=== PATIENT | female | born 1990 | race Caucasian/White ===

== ENCOUNTER 2023-07-05 02:30 | Outpatient (CLI) | payer OTHER ==
[~2023-07-05] VITALS: Ht 170.2 cm; Wt 69.9 kg
== END 2023-07-05 12:44 | disposition home or self-care (01) ==
LOC: LDR 02:30 → OBS/DEL 02:30 → LDR 12:44 → OBS/DEL 12:44
PROVIDERS: ATTEND Obstetrics & Gynecology
DX: O26.853 Spotting complicating pregnancy, third trimester (principal); Z3A.33 33 weeks gestation of pregnancy; Z20.822 Contact with and (suspected) exposure to COVID-19

== ENCOUNTER 2023-08-05 10:15 | Outpatient (CLI) | payer OTHER | END 2023-08-05 11:07 | disposition home or self-care (01) | LOC: NST 10:15 | PROVIDERS: ATTEND Obstetrics & Gynecology | DX: Z34.83 Encounter for supervision of other normal pregnancy, third trimester (principal) ==

== ENCOUNTER 2023-08-12 12:04 | Outpatient (CLI) | payer OTHER | END 2023-08-12 12:54 | disposition home or self-care (01) | LOC: NST 12:04 | PROVIDERS: ATTEND Obstetrics & Gynecology Gynecology | DX: Z34.83 Encounter for supervision of other normal pregnancy, third trimester (principal) ==